=== PATIENT | female | born 1990 | race Caucasian/White ===

== ENCOUNTER 2024-07-30 20:41 | Emergency (ER) | payer MEDICAID ==
[~2024-07-30] VITALS: Ht 162.6 cm; Wt 118.0 kg
[2024-07-30 20:51] VITALS: O2SAT 97
[2024-07-30 21:18] LABS: BASOPHILS % 0.8 % (0.0-2.0); EOSINOPHILS % 1.8 % (0.0-5.0); HEMATOCRIT. 42.6 % (36.0-48.0); HEMOGLOBIN. 14.2 g/dL (12.0-16.0); LYMPHOCYTES % 31.1 % (20.0-50.0); MEAN CORPUSCULAR HEMOGLOBIN 27.6 pg (28.0-32.0); MEAN CORPUSCULAR HGB CONC 33.2 g/dL (31.0-37.0); MEAN PLATELET VOLUME 9.3 fl (7.4-10.4); MONOCYTES % 7.8 % (2.0-8.0); NEUTROPHILS % 58.5 % (40.0-76.0); PLATELET 315 x1000/uL (130-400); RED BLOOD CELL COUNT 5.12 mill/uL (4.2-5.4); RED CELL DISTRIBUTION WIDTH 15.9 % (11.6-14.6); WHITE BLOOD COUNT 11.9 x1000/uL (4.5-11.0)
[2024-07-30 21:25] LABS: CHLORIDE 102 mEq/L (98-107); POTASSIUM 4.4 mEq/L (3.5-5.1); SODIUM 136 mEq/L (136-145)
[2024-07-30 21:26] LABS: CALCIUM 9.9 mg/dL (8.7-10.4); CARBON DIOXIDE 29 mEq/L (21-32)
[2024-07-30 21:31] LABS: GLUCOSE 194 mg/dL (70-105); UREA NITROGEN BLOOD 9 mg/dL (9-23)
[2024-07-30 21:32] LABS: TROPONIN I HIGH SENSITIVITY 5 ng/L (3.0-34)
[2024-07-30 22:02] LABS: HCG SCREEN NEGATIVE
[2024-07-30] MEDS: KETOROLAC 30MG/ML VIAL IM ONE (22:02)
[2024-07-30 22:30] VITALS: BP 129/79; PULSE 78; RESP 22; TEMP 36.78072; O2SAT 98
[2024-07-30] MEDS ORDERED: AZIT250T MT (22:52)
[2024-07-30] MEDS ORDERED: IBUP-2028 MT (22:52)
== END 2024-07-30 23:09 | disposition home or self-care (01) ==
LOC: ER 20:41
DX: J18.9 Pneumonia, unspecified organism (principal); R07.89 Other chest pain; J02.9 Acute pharyngitis, unspecified
CPT/HCPCS: 99285; 71045; 80048; 84703; 87430; 85025; 84484; 87070; 36415; 93005; 96372; J1885